=== PATIENT | male | born 1960 | race Caucasian/White ===

== ENCOUNTER → 2024-09-30 | Outpatient (CLI) | payer OTHER ==
--- NOTE | 2024-09-30 11:09 | XR ---
EXAMINATION TYPE: XR lumbar spine 2 or 3V DATE OF EXAM: 09/30/2024 11:03 AM COMPARISON: None. CLINICAL INDICATION: Male, 64 years old with history of M54.50 LOW BACK PAIN, UNSPECIFIED M25.561 ROGER N IN, TECHNIQUE: Frontal, lateral, and oblique images of the lumbar spine are obtained. FINDINGS: There are 5 lumbar type vertebral bodies identified. The lumbar spine shows satisfactory alignment without evidence of acute fracture or dislocation. Vertebral body heights are within normal limits. Severe degenerative disc disease at L3-4 vacuum disc and endplates. Facet joint arthropathy. The overlying soft tissue appears unremarkable. IMPRESSION: No acute fracture or dislocation is seen in the lumbar spine.ICD 10 NO FRACTURE, INITIAL EVALUATION [facility], , 09/30/2024 11:07 AM
--- NOTE | 2024-09-30 11:43 | XR ---
EXAMINATION TYPE: XR knee limited RT DATE OF EXAM: 09/30/2024 11:03 AM INDICATION: Patient age:Male; 64 years old; Reason for study: M54.50 LOW BACK PAIN, UNSPECIFIED M25.561 PAIN IN; PHH. pain COMPARISON: None. TECHNIQUE: The Right knee(s) was examined in Frontal and lateral projections. FINDINGS: No evidence of any acute osseous pathology, soft tissue swelling, or joint effusion is no frances. No significant joint space narrowing. Calcification within both menisci. Suprapatellar spurring. Moderate vascular calcifications. IMPRESSION: 1. No acute osseous pathology. 2. Chondrocalcinosis which is likely secondary to CPPD. [facility], , 09/30/2024 11:41 AM
== END | disposition home or self-care (01) ==
LOC: LABWHC1 10:35
PROVIDERS: ATTEND Family Medicine
DX: M51.360 Other intervertebral disc degeneration, lumbar region with discogenic back pain only (principal); M11.261 Other chondrocalcinosis, right knee; M47.816 Spondylosis without myelopathy or radiculopathy, lumbar region
CPT/HCPCS: 72100